=== PATIENT | female | born 1940 | race Caucasian/White ===

== ENCOUNTER → 2020-03-18 | Outpatient (CLI) | payer OTHER | END | disposition home or self-care (01) | LOC: LAB SHORT 07:12 → PLD 07:12 | DX: D37.032 Neoplasm of uncertain behavior of the submandibular salivary glands (principal) | CPT/HCPCS: 88173 ==

== ENCOUNTER 2020-04-28 06:25 | Day surgery (SDC) | payer OTHER ==
[~2020-04-28] VITALS: Ht 167.6 cm; Wt 85.0 kg
[~2020-04-28 06:25] MED LIST: CENTRUM SILVER1 EAC2; CLARITIN-D 121 EAC1; ERGO50000
--- NOTE | 2020-04-28 07:31 | NUR ---
04/28/20 0731 Ailyn Tavera 3 IV ATTEMPTS BY [facility], 1ST IN LEFT HAND INFILTRATED, 2ND IN LEFT WRIST INFILTRATED, 3RD IN L FOREARM INFILTRATED, 4TH ATTEMPT BY [facility] IN R HAND WAS SUCCESSFUL.
--- NOTE | 2020-04-28 10:19 | NUR ---
04/28/20 1019 CASSIE MEYER PT RECIEVED ZOFRAN 4MG IV FOR NAUSEA. TOLERATING PO FLUIDS AND CRACKERS AFTER MEDICATION.
== END 2020-04-28 10:35 | disposition home or self-care (01) ==
LOC: ORSCSDS 06:25
PROVIDERS: Otolaryngology
PROC: 0CBH0ZZ Excision of Left Submaxillary Gland, Open Approach (ICD-10-PCS; principal; 2020-04-28 07:30)
DX: D00.00 Carcinoma in situ of oral cavity, unspecified site (principal)
CPT/HCPCS: 88307; J0171; J0330; J1100; J2370; J2405; J2704; J3010; J7120

== ENCOUNTER → 2020-07-23 | Outpatient (CLI) | payer OTHER | LOC: LAB SHORT 14:30 → PLD 14:30 | DX: K21.9 Gastro-esophageal reflux disease without esophagitis (principal); R05 Cough | CPT/HCPCS: 87338 ==

== ENCOUNTER → 2020-08-12 | Outpatient (CLI) | payer OTHER ==
[2020-08-13 09:22] LABS: Stool Occult Bld Immuno 1 Negative (NEGATIVE)
== END ==
LOC: LAB SHORT 10:45 → LAB EV 10:45
PROVIDERS: Physician Assistant
DX: K21.9 Gastro-esophageal reflux disease without esophagitis (principal); R05 Cough
CPT/HCPCS: G0328

== ENCOUNTER 2020-10-12 06:51 | Day surgery (SDC) | payer OTHER ==
[~2020-10-12] VITALS: Ht 165.1 cm; Wt 86.0 kg
--- NOTE | 2020-10-12 07:53 | NUR ---
10/12/20 0753 Erin Nicholson INSERTED AT 0737, PT TOLERATED WELL
== END 2020-10-12 08:51 | disposition home or self-care (01) ==
LOC: ORSCSDS 06:51
PROVIDERS: Ophthalmology
PROC: 08RK3JZ Replacement of Left Lens with Synthetic Substitute, Percutaneous Approach (ICD-10-PCS; principal; 2020-10-12 08:00)
DX: H25.12 Age-related nuclear cataract, left eye (principal); Z86.73 Personal history of transient ischemic attack (TIA), and cerebral infarction without residual deficits; I10 Essential (primary) hypertension; E78.5 Hyperlipidemia, unspecified; K21.9 Gastro-esophageal reflux disease without esophagitis; Z79.899 Other long term (current) drug therapy
CPT/HCPCS: A9270; J2001; J2250; J3010; V2632

== ENCOUNTER → 2021-01-27 | Outpatient (CLI) | payer OTHER ==
[2021-01-28 15:07] LABS: CORONAVIRUS (COVID19) CSH-NRL Negative (Negative)
== END | disposition home or self-care (01) ==
LOC: LAB EV 10:03 → LAB SHORT 10:03
PROVIDERS: Physician Assistant
DX: Z20.822 Contact with and (suspected) exposure to COVID-19 (principal)
CPT/HCPCS: U0003

== ENCOUNTER → 2022-03-28 | Outpatient (CLI) | payer OTHER | END | disposition home or self-care (01) | LOC: LAB SHORT 10:51 → LAB 10:51 | DX: N39.0 Urinary tract infection, site not specified (principal) | CPT/HCPCS: 87077; 87086; 87186 ==

== ENCOUNTER → 2022-04-17 | Outpatient (CLI) | payer OTHER | LOC: LAB 07:52 → LAB SHORT 07:52 | DX: L81.4 Other melanin hyperpigmentation (principal); L57.0 Actinic keratosis | CPT/HCPCS: 88305 ==

== ENCOUNTER → 2022-06-15 | Outpatient (CLI) | payer OTHER | END | disposition home or self-care (01) | LOC: LAB SHORT 11:40 | DX: N39.0 Urinary tract infection, site not specified (principal) | CPT/HCPCS: 87077; 87086; 87186 ==

== ENCOUNTER → 2022-07-20 | Outpatient (CLI) | payer OTHER ==
[2022-07-20 17:55] LABS: Appearance, Urine Cloudy (Clear); Bilirubin, Urine Neg (Neg); Blood, Urine 1+ (Neg); Color, Urine Yellow (P-Yellow); Glucose Qualitative, Urine Neg (Neg); Ketones, Urine Neg (Neg); Leukocyte Esterase, Urine 3+ (Neg); Nitrite, Urine Pos (Neg); Protein, Urine 1+ (Neg); Specific Gravity, Urine 1.015 (1.003-1.022); Urobilinogen, Urine NORM (Normal)
[2022-07-20 18:09] LABS: Bacteria Many /hpf; Squamous Epithelial Cells Few /hpf (Few); White Blood Cells, Urine TNTC /hpf (0-5)
== END ==
LOC: LAB SHORT 15:50 → LAB 15:50
PROVIDERS: Physician Assistant
DX: Z09 Encounter for follow-up examination after completed treatment for conditions other than malignant neoplasm (principal); Z86.19 Personal history of other infectious and parasitic diseases
CPT/HCPCS: 81001; 87077; 87086; 87186

== ENCOUNTER → 2022-10-16 | Outpatient (CLI) | payer OTHER | END | disposition home or self-care (01) | LOC: LAB 07:38 → LAB SHORT 07:38 | DX: L91.8 Other hypertrophic disorders of the skin (principal); C44.41 Basal cell carcinoma of skin of scalp and neck | CPT/HCPCS: 88304; 88305 ==

== ENCOUNTER → 2022-11-08 | Outpatient (CLI) | payer OTHER | LOC: LAB 09:27 → LAB SHORT 09:27 → PLD 09:27 | DX: C44.41 Basal cell carcinoma of skin of scalp and neck (principal) | CPT/HCPCS: 88305 ==

== ENCOUNTER → 2023-04-26 | Outpatient (CLI) | payer OTHER ==
[2023-04-26 17:40] LABS: Source, Urine Clean Catch
[2023-04-26 18:26] LABS: Bilirubin, Urine Neg (Neg); Blood, Urine 1+ (Neg); Glucose Qualitative, Urine Neg (Neg); Ketones, Urine Neg (Neg); Leukocyte Esterase, Urine 3+ (Neg); Nitrite, Urine Pos (Neg); Protein, Urine 1+ (Neg); Urobilinogen, Urine NORM (Normal)
[2023-04-26 19:08] LABS: Appearance, Urine Cloudy (Clear); Color, Urine Pale Yellow (P-Yellow)
[2023-04-26 19:09] LABS: White Blood Cells, Urine TNTC /hpf (0-5)
[2023-04-26 19:10] LABS: Bacteria Mod /hpf; Squamous Epithelial Cells Few /hpf (Few)
[2023-04-26 19:11] LABS: Transitional Epithelial Cells Rare /hpf (0-Rare)
[2023-04-26 19:14] LABS: WBC Cast 0-2 /lpf (0)
== END ==
LOC: LAB 17:38 → LAB SHORT 17:38
PROVIDERS: Obstetrics & Gynecology
DX: R82.90 Unspecified abnormal findings in urine (principal)
CPT/HCPCS: 81001; 87077; 87086; 87186

== ENCOUNTER → 2023-07-11 | Outpatient (CLI) | payer OTHER ==
[2023-07-11 16:48] LABS: Source, Urine Clean Catch
[2023-07-11 17:23] LABS: Appearance, Urine Hazy (Clear); Bilirubin, Urine Neg (Neg); Blood, Urine 1+ (Neg); Color, Urine Yellow (P-Yellow); Glucose Qualitative, Urine Neg (Neg); Ketones, Urine Neg (Neg); Leukocyte Esterase, Urine 3+ (Neg); Nitrite, Urine Neg (Neg); Protein, Urine 1+ (Neg); Urobilinogen, Urine NORM (Normal)
[2023-07-11 17:31] LABS: Bacteria Few /hpf; Squamous Epithelial Cells Few /hpf (Few); White Blood Cells, Urine 50-100 /hpf (0-5)
== END | disposition home or self-care (01) ==
LOC: LAB SHORT 15:10 → LAB 15:10
PROVIDERS: Obstetrics & Gynecology
DX: R30.0 Dysuria (principal)
CPT/HCPCS: 81001; 87077; 87086; 87186

== ENCOUNTER 2024-04-26 02:09 | Emergency (ER) | payer OTHER ==
[~2024-04-26] VITALS: Ht 165.1 cm; Wt 86.2 kg
[2024-04-26] MEDS ORDERED: NS 1,000 ML IV SCH (03:25)
[2024-04-26 03:42] LABS: BASOPHILS ABSOLUTE AUTO 0.04 K/mm3 (0.00-0.23); BASOPHILS PERCENT AUTO 0 % (0-2); EOSINOPHILS ABSOLUTE AUTO 0.07 K/mm3 (0.00-0.68); EOSINOPHILS PERCENT AUTO 1 % (0-6); Hematocrit 39.4 % (33.0-51.0); Hemoglobin 13.5 g/dL (11.5-16.0); IMMATURE GRAN ABSOLUTE AUTO 0.03 K/mm3 (0.00-0.10); IMMATURE GRAN PERCENT AUTO 0 % (0-1); LYMPHOCYTES ABSOLUTE AUTO 0.62 K/mm3 (0.84-5.20); LYMPHOCYTES PERCENT AUTO 5 % (21-46); MONOCYTES ABSOLUTE AUTO 0.88 K/mm3 (0.16-1.47); MONOCYTES PERCENT AUTO 7 % (4-13); Mean Corpuscular HGB 31.5 pg (26.0-34.0); Mean Corpuscular HGB Conc 34.3 g/dL (31.5-36.5); Mean Corpuscular Volume 92 fL (80-100); Mean Platelet Volume 9.2 fL (9.1-12.4); NEUTROPHILS PERCENT AUTO 87 % (41-73); Platelet Count 298 K/mm3 (150-400); RDW Coefficient Variation 12.5 % (11.7-14.2); RDW Standard Deviation 42.8 fL (35.1-46.3); Red Blood Cell Count 4.28 M/mm3 (3.80-5.20); White Blood Cell Count 12.34 K/mm3 (4.00-11.30)
[2024-04-26 04:39] LABS: Bun/Creatinine Ratio 24.3 (12.0-20.0); Calcium, Blood 9.7 mg/dL (8.5-10.1); Creatinine, Blood 0.78 mg/dL (0.40-1.00); Potassium, Blood 4.1 mmol/L (3.5-5.5)
[2024-04-26 04:46] LABS: Influenza A, PCR NEGATIVE (NEGATIVE); Influenza B, PCR NEGATIVE (NEGATIVE); Resp Syncytial Virus, PCR NEGATIVE (NEGATIVE); SARS-Cov-2 (COVID-19) PCR, MMC NEGATIVE (NEGATIVE)
[2024-04-26 05:50] LABS: Source, Urine Clean Catch
[2024-04-26 05:54] LABS: Appearance, Urine Hazy (Clear); Bilirubin, Urine Neg (Neg); Blood, Urine 3+ (Neg); Color, Urine Yellow (P-Yellow); Glucose Qualitative, Urine Neg (Neg); Ketones, Urine Neg (Neg); Leukocyte Esterase, Urine 3+ (Neg); Nitrite, Urine Pos (Neg); Protein, Urine 2+ (Neg); Urobilinogen, Urine NORM (Normal)
[2024-04-26 06:07] LABS: White Blood Cells, Urine 50-100 /hpf (0-5)
[2024-04-26 06:10] LABS: Bacteria Many /hpf; Squamous Epithelial Cells Rare /hpf (Few)
[2024-04-26] MEDS ORDERED: CefTRIAXone Sodium 1,000 MG in NS 100 ML IV ONE (06:15)
[2024-04-26] MEDS ORDERED: NITR100CA PO (06:43)
[2024-04-26 07:45] VITALS: BP 124/66
== END 2024-04-26 07:51 | disposition home or self-care (01) ==
LOC: ER 02:09
PROVIDERS: Student in an Organized Health Care Education/Training Program
DX: N30.90 Cystitis, unspecified without hematuria (principal); Z88.2 Allergy status to sulfonamides
CPT/HCPCS: 0241U; 71046; 80048; 81001; 85025; 87077; 87086; 87186; 96365; 99284-25; J0696; J7030

== ENCOUNTER → 2024-05-08 | Outpatient (CLI) | payer OTHER ==
[~2024-05-08] MED LIST changes: +NITR100CA PO
== END ==
LOC: LAB 15:54 → LAB SHORT 15:54
DX: N39.0 Urinary tract infection, site not specified (principal)
CPT/HCPCS: 87077; 87086; 87186

== ENCOUNTER → 2024-08-15 | Outpatient (CLI) | payer OTHER | LOC: LAB 15:06 → LAB SHORT 15:06 | DX: R35.0 Frequency of micturition (principal); R82.81 Pyuria | CPT/HCPCS: 87086 ==

== ENCOUNTER → 2025-04-23 | Outpatient (CLI) | payer OTHER ==
[2025-04-23 13:47] LABS: Source, Urine Clean Catch
[2025-04-23 15:15] LABS: Bilirubin, Urine Neg (Neg); Color, Urine Yellow (P-Yellow); Glucose Qualitative, Urine Neg (Neg); Ketones, Urine Neg (Neg); Leukocyte Esterase, Urine Neg (Neg); Protein, Urine Neg (Neg); Specific Gravity, Urine 1.015 (1.003-1.022); Urobilinogen, Urine NORM (Normal)
== END ==
LOC: LAB 13:45 → LAB SHORT 13:45
PROVIDERS: Obstetrics & Gynecology
DX: R30.0 Dysuria (principal)
CPT/HCPCS: 81003